=== PATIENT | male | born 1985 | race Caucasian/White ===

== ENCOUNTER 2020-01-29 07:53 | Emergency (ER) | payer SELFPAY ==
[2020-01-29 08:02] VITALS: BP 168/110; PULSE 112; RESP 22; TEMP 36.6; O2SAT 98
--- NOTE | 2020-01-29 08:11 | ED_ITS ---
I attest that this documentation has been prepared under the direction and in the presence of Preston Stiles MD. Milton Yarbrough Scribe 01/29/20;08:12 HPI - Dental/Oral General Chief complaint: Dental/Oral Stated complaint: facial pain and swelling Time Seen by Provider: 01/29/20 07:55 Source: patient Mode of arrival: ambulatory Limitations: no limitations History of Present Illness HPI Narrative: Pt is a 34 y/o male who presents to the ED with c/o rt upper dental pain and swelling that started yesterday. Pt states that he had a fever of 100F last night and reports chills and sweats. He notes that he started taking penicillin yesterday and was doubling up his dose but it was not relieving his pain or swelling. 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 Complaint: tooth pain Onset (ago): day(s) (yesterday) Duration: constant Relieving factors: nothing Context: history of dental caries Associated symptoms: fever and other (chills, sweats) Treatment prior to arrival: other (penicillin) Related Data Allergies Allergy/AdvReac Type Severity Reaction Status Date / Time Penicillins Allergy Severe Unknown Verified 05/01/18 15:28 Review of Systems Review of Systems: All systems reviewed & are unremarkable except as noted in HPI and below Constitutional: Constitutional: Reports chills, Reports fever(s) and Reports other (sweats) ENT: Reports dental pain (and swelling) [facility] Past Medical History Medical History (Updated 01/29/20 @ 08:36 by Preston Stiles MD) Anxiety Depression GERD (gastroesophageal reflux disease) Surgical History Surgical History (Updated 01/29/20 @ 08:21 by Milton Yarbrough) History of incision and drainage Social History Social History (Updated 01/29/20 @ 08:22 by Milton Yarbrough) Substance use: former Exam Const: General: no acute distress and alert Orientation/consciousness: patient oriented x3 HENMT: Head: normal to inspection Other: Pain in the right upper teeth , no obvious abscess . Eyes: Pupils: Equal, round and reactive pupils present Neck: Neck: normal visual inspection Chest: Chest palpation & inspection: normal inspection of the chest Resp: Effort & Inspection: normal respiratory effort Cardio: Rate: regular rate Course Vital Signs Vital signs: Vital Signs Temperature 36.6 C 01/29/20 08:02 Pulse Rate 112 H 01/29/20 08:02 Respiratory Rate 22 H 01/29/20 08:02 Blood Pressure 168/110 H 01/29/20 08:02 Pulse Oximetry 98 01/29/20 08:02 Temperature 36.6 C 01/29/20 08:02 Pulse Rate 112 H 01/29/20 08:02 Respiratory Rate 22 H 01/29/20 08:02 Blood Pressure 168/110 H 01/29/20 08:02 Pulse Oximetry 98 01/29/20 08:02 Discharge Plan Discharge Clinical Impression: Toothache Patient Disposition: Home, Self-Care Condition: Stable Instructions: Antibiotic Form, Toothache (ED) Additional Instructions: follow with your dentist. Prescriptions: New amoxicillin 875 mg tablet 875 mg PO Q12H Qty: 20 RF: 0 tramadol 50 mg tablet 50 mg PO Q6H PRN (Reason: pain) Qty: 20 RF: 0 Follow-up/Referrals: Joss Arevalo MD [Primary Care Provider] -
[2020-01-29 09:04] VITALS: PULSE 68; RESP 16; O2SAT 100
== END 2020-01-29 09:08 | disposition home or self-care (01) ==
PROVIDERS: Emergency Provider Family Medicine; PCP Family Medicine
DX: K08.89 Other specified disorders of teeth and supporting structures (principal); K21.9 Gastro-esophageal reflux disease without esophagitis
CPT/HCPCS: 99283

== ENCOUNTER 2021-02-24 11:39 | Emergency (ER) | payer BC, SELFPAY ==
--- NOTE | 2021-02-24 11:43 | ED.GENADULT ---
HPI - General Adult General Chief complaint: Wound/Laceration Stated complaint: HEMORRHOIDS Time Seen by Provider: 02/24/21 11:44 Source: patient and RN notes reviewed History of Present Illness HPI narrative: Patient is a 35-year-old male who presents the urgent care with complaints of internal and external painful hemorrhoids. Patient states that he has had them for some time and recently had a bout of diarrhea which she believes made the issue worse. Patient states that he has been using Preparation H [id number] with mild improvement but he is unable to go to work due to the pain. Patient states that he needs a work release because he cannot sit on a hard stool or stand all day with the pain. Patient states he did notice scant blood when wiping but denies of bloody bowel movements. No other acute complaints. No acute distress noted. Patient aware of the plan of care. Some parts of this dictation were generated by voice recognition software and may contain typographical and/or grammatical inaccuracies. Related Data Home Medications Medication Instructions Recorded Confirmed No Home Medications 02/24/21 02/24/21 Allergies Allergy/AdvReac Type Severity Reaction Status Date / Time No Known Allergies Allergy Verified 02/24/21 11:51 Review of Systems Review of Systems: Narrative: CONSTITUTIONAL: Denies fever, chills, or sweats. EYES: Denies visual changes, redness, or discharge. ENT: Denies rhinorrhea, congestion, sore throat, or otalgia. CARDIOVASCULAR: Denies chest pain, palpitations, or edema. RESPIRATORY: Denies cough or dyspnea. GASTROINTESTINAL: Denies abdominal pain, nausea, vomiting, or diarrhea. Reports of internal and external painful hemorrhoid GENITOURINARY: Denies dysuria or hematuria. SKIN: Denies rash or itching. MUSCULOSKELETAL: Denies back pain, joint pain, or myalgia. NEUROLOGIC: Denies headache, numbness, or weakness. All other systems reviewed are negative, except as documented in HPI. [facility] Past Medical History Medical History (Updated 02/24/21 @ 11:57 by STANLEY Zavala) Anxiety Depression GERD (gastroesophageal reflux disease) Surgical History Surgical History (Updated 01/29/20 @ 08:21 by Milton Yarbrough) History of incision and drainage Social History Social History (Updated 01/29/20 @ 08:22 by Milton Yarbrough) Substance use: former Comments At the time of my signature, I reviewed and agree with the nursing past medical, surgical, social, and family history. There is no relevant family history pertinent to the patient complaint. Exam Narrative: Exam Narrative: GENERAL: This is a well-nourished, well-developed patient, in no apparent distress. HEAD: normocephalic, atraumatic. EYES: PERRL. Sclera clear/white. Vision is grossly intact. EARS: External ears normal NOSE: External nose normal with no obvious nasal discharge, nares without redness, no rhinorrhea. THROAT: Mucous membranes moist NECK: Neck supple GASTROINTESTINAL: Mildly edematous, nonthrombosed/nonbleeding left-sided external hemorrhoid. Patient deferred internal exam. SKIN: warm, intact with no suspicious lesions or rash, good texture and turgor. NEURO: awake, alert, and oriented to person, place and time. There were no obvious focal neurologic abnormalities. EXTREMITIES: No clubbing, cyanosis, or edema. Course Vital Signs Vital signs: Vital Signs Temperature 98.3 F 02/24/21 11:47 Pulse Rate 66 02/24/21 11:47 Respiratory Rate 20 02/24/21 11:47 Blood Pressure 117/85 02/24/21 11:47 Pulse Oximetry 99 02/24/21 11:47 Temperature 98.3 F 02/24/21 11:47 Pulse Rate 66 02/24/21 11:47 Respiratory Rate 20 02/24/21 11:47 Blood Pressure 117/85 02/24/21 11:47 Pulse Oximetry 99 02/24/21 11:47 Reviewed Medical Decision Making MDM Narrative Medical decision making narrative: Advised the patient to use the Anusol prescription as directed. Continue Preparation H for ex
[2021-02-24 11:47] VITALS: BP 117/85; PULSE 66; RESP 20; TEMP 36.8; O2SAT 99
== END 2021-02-24 12:01 | disposition home or self-care (01) ==
PROVIDERS: Emergency Provider Nurse Practitioner Family
DX: K64.4 Residual hemorrhoidal skin tags (principal); K21.9 Gastro-esophageal reflux disease without esophagitis
CPT/HCPCS: 99213; G0463

== ENCOUNTER 2022-11-24 08:44 | Emergency (ER) | payer SELFPAY ==
[2022-11-24 08:51] VITALS: BP 123/83; PULSE 95; RESP 16; TEMP 36.6; O2SAT 99
--- NOTE | 2022-11-24 09:23 | ED.DENTAL ---
HPI - Dental/Oral General Chief complaint: Dental/Oral Stated complaint: dental abcess Time Seen by Provider: 11/24/22 09:06 Source: patient Mode of arrival: ambulatory Limitations: no limitations History of Present Illness HPI Narrative: This is a 37 year old male that presents to the ER for possible dental abscess. Reports he has had a toothache for the last 4 days. Reports redness and swelling of the area. Denies fever or drainage. MD Complaint: tooth pain Location: Tooth # (8) Related Data Allergies Allergy/AdvReac Type Severity Reaction Status Date / Time No Known Allergies Allergy Verified 11/24/22 08:50 Review of Systems Review of Systems: CONSTITUTIONAL: Denies fever ENT: Reports dentalgia All systems reviewed & are unremarkable except as noted in HPI and below PMFSH Past Medical History Medical History (Updated 11/24/22 @ 10:27 by Shante Stone PA-C) Anxiety Depression GERD (gastroesophageal reflux disease) Surgical History Surgical History (Updated 01/29/20 @ 08:21 by Milton Yarbrough) History of incision and drainage Social History Social History (Updated 01/29/20 @ 08:22 by Milton Yarbrough) Substance use: former Exam Narrative: GENERAL: Well-appearing, well-nourished, and in no acute distress. HEAD: Normocephalic, atraumatic. EYES: EOMI. ENT: Mucous membranes moist. Oropharynx without tonsillar hypertrophy exudate or other lesions. Poor dentition. Tooth #8 with an area of edema/erythema/fluctuance NECK: Supple. No adenopathy or masses. CHEST: No respiratory distress. HEART: Regular rate EXTREMITIES: Normal range of motion. No edema. SKIN: Warm, dry, no rash. NEURO: No focal deficits. Alert and oriented x3. PSYCH: Normal mood and affect Course Vital Signs Vital signs: Vital Signs Temperature 98 F 11/24/22 08:51 Pulse Rate 95 11/24/22 08:51 Respiratory Rate 16 11/24/22 08:51 Blood Pressure 123/83 11/24/22 08:51 Pulse Oximetry 99 11/24/22 08:51 Oxygen Delivery Room Air 11/24/22 08:51 Temperature 98 F 11/24/22 08:51 Pulse Rate 95 11/24/22 08:51 Respiratory Rate 16 11/24/22 08:51 Blood Pressure 123/83 11/24/22 08:51 Pulse Oximetry 99 11/24/22 08:51 Oxygen Delivery Room Air 11/24/22 08:51 Procedures Abscess I/D oral: Date of Incision: 11/24/22 Time of Incision: 10:25 Local Anesthetic: lidocaine 1% and none (Cetacaine) Amount of anesthesia used (mL): 2 Technique: incised with #11 blade Packing used?: none I&D Results: Pus and Blood MDM - Dental/Oral MDM Narrative Medical decision making narrative: Patient presents emergency department for a dental abscess. He is afebrile and nontoxic-appearing. His vitals are normal. Abscess was successfully drained without complications. He will be started on oral antibiotics and was instructed he should have close follow-up with a dentist. He was given warnings to return to the ER Differential Diagnosis Differential diagnosis: Likely dental caries, toothache, dental abscess and fracture of tooth Critical Care Time Critical Care Time Critical Care Time: No Discharge Plan Discharge Clinical Impression: Dental abscess Patient Disposition: Home, Self-Care Condition: Stable Instructions: Antibiotic Form, Dental Abscess (ED) Additional Instructions: Return to the Emergency Department if you experience fever >101, increasing swelling and redness of your tooth or face, or any other symptoms that are concerning to you Take antibiotic as prescribed. Tylenol or Ibuprofen as needed for pain. Follow up with a dentist. Dr. Ariel Fitzgerald at [facility] if needed Prescriptions: New amoxicillin-pot clavulanate 875-125 mg tablet 1 tablet PO Q12H 10 Days Qty: 20 0RF Follow-up/Referrals: PHYSICIAN,INSTRUMENT INSTALLER [Primary Care Provider] -
== END 2022-11-24 11:15 | disposition home or self-care (01) ==
PROVIDERS: Emergency Provider Physician Assistant
DX: K04.7 Periapical abscess without sinus (principal); K21.9 Gastro-esophageal reflux disease without esophagitis
CPT/HCPCS: 41800; 87070; 87205; 99283